=== PATIENT | female | born 2000 | race Two or more races ===

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

== ENCOUNTER 2019-04-19 08:55 | Emergency (ER) | payer SELFPAY ==
[~2019-04-19] VITALS: Ht 154.9 cm; Wt 62.6 kg
[~2019-04-19 08:55] MED LIST changes: +NAPR-683 PO
[2019-04-19] MEDS ORDERED: IV NORMAL SALINE 1000ML BAG 1,000 ML IV ONE (09:30)
[2019-04-19] MEDS ORDERED: ONDANSETRON PF 4 MG/2 ML VIAL. IV ONE (09:30)
[2019-04-19] MEDS ORDERED: FAMOTIDINE 20 MG/2 ML VIAL IVP ONE (09:30)
[2019-04-19 09:50] LABS: BILIRUBIN,URINE NEGATIVE (NEG); CLARITY,URINE CLEAR; COLOR,URINE YELLOW; NITRITE,URINE NEGATIVE (NEG); PROTEIN,URINE NEGATIVE (NEG-TRACE); UROBILINOGEN,URINE 0.2 mg/dL (0.2 mg/dL)
[2019-04-19 09:51] LABS: HEMATOCRIT 39.6 % (36.0-47.0); HEMOGLOBIN 13.9 g/dL (12.0-15.5); MEAN CORPUSCULAR VOLUME 93 fL (79-100); RED BLOOD COUNT 4.26 x10^6/uL (3.50-5.40); WHITE BLOOD COUNT 5.5 x10^3/uL (4.0-11.0)
[2019-04-19 09:52] LABS: BASO % 0 % (0-3); EOS # 0.2 x10^3/uL (0.0-0.7); EOS % 4 % (0-3); LYMPH # 2.4 x10^3/uL (1.0-4.8); LYMPH % 43 % (24-48); MEAN CORPUSCULAR HEMOGLOBIN 33 pg (25-35); MEAN CORPUSCULAR HGB CONC 35 g/dL (31-37); MONO # 0.4 x10^3/uL (0.0-1.1); MONO % 8 % (0-9); NEUT # 2.5 x10^3/uL (1.8-7.7); NEUT % 45 % (31-73); PLATELET COUNT 327 x10^3/uL (140-400); RED CELL DISTRIBUTION WIDTH 12.5 % (11.5-14.5)
[2019-04-19 09:58] LABS: CALCIUM 8.7 mg/dL (8.5-10.1); CREATININE 0.8 mg/dL (0.6-1.0); GFR 92.4; POTASSIUM 3.9 mmol/L (3.5-5.1)
[2019-04-19 10:02] LABS: BACTERIA,URINE FEW /HPF (0-FEW); SQUAMOUS EPITHELIAL CELL,UR MANY /LPF
[2019-04-19 10:04] LABS: ALBUMIN/GLOBULIN RATIO 1.2 (1.0-1.7); MAGNESIUM 1.8 mg/dL (1.8-2.4); TOTAL BILIRUBIN 0.3 mg/dL (0.2-1.0); TOTAL PROTEIN 7.4 g/dL (6.4-8.2)
--- NOTE | 2019-04-19 11:29 | RAD ---
ABDOMEN LTD History: Right upper quadrant pain Comparison: None. Findings: Multiple sonographic images of the abdomen are submitted. There is no abnormality of the visualized pancreas. Gallbladder is present without intraluminal, wall thickening, pericholecystic fluid. Right lobe of the liver measured 15.4 cm longitudinal. Hepatic echogenicity is within normal limits. Common bile duct is within limits at less than 0.2 cm. There is segmental visualization of the inferior vena cava. Right kidney measured 10.1 x 5.1 x 3.7 cm, no hydronephrosis. Impression: 1. No significant abnormality is demonstrated. Electronically signed by: Jonathan Booth MD (04/19/2019 11:26 AM) [id number]
--- NOTE | 2019-04-19 11:46 | PHYS DOC ---
Past Medical History Past Medical History: No Pertinent History Additional Past Medical Histor: Past Surgical History: No Surgical History Alcohol Use: None Drug Use: None Adult General Chief Complaint Chief Complaint: ABDOMINAL PAIN HPI HPI Patient is a 18 year old female who presents to the emergency department with complaints of left upper and epigastric abdominal pain with na usea that increases after eating for the last 4-5 days. Patient denies any vomiting, diarrhea, dysuria, increased urinary frequency, hematuria, irregular vaginal discharge, or vaginal bleeding. She describes the pain as a burning sensation. Patient also denies any fever, cough, shortness of breath, chest pain, palpitations, or sore throat. He currently rates her pain a 7 out of 10 on the pain scale, she denies any alleviating factors, the pain is worse after she eats. The [employer] pressurizer line was used to translate for patient as she is Yoruba speaking only. Review of Systems Review of Systems Constitutional: Denies fever or chills [] Eyes: Denies change in visual acuity, redness, or eye pain [] HENT: Denies nasal congestion or sore throat [] Respiratory: Denies cough or shortness of breath [] Cardiovascular: No additional information not addressed in HPI [] GI: See HPI : Denies dysuria or hematuria [] Musculoskeletal: Denies back pain or joint pain [] Integument: Denies rash or skin lesions [] Neurologic: Denies headache Complete systems were reviewed and found to be within normal limits, except as documented in this note. Current Medications Current Medications Current Medications Medications (Trade) Dose Ordered Sig/Mervat Start Time Stop Time Status Last Admin Dose Admin Famotidine (Pepcid Vial) 20 mg 1X ONCE 04/19/19 09:30 04/19/19 09:31 DC 04/19/19 09:57 20 MG Ondansetron HCl (Zofran) 4 mg 1X ONCE 04/19/19 09:30 04/19/19 09:31 DC 04/19/19 09:57 4 MG Sodium Chloride 1,000 ml @ 1,000 mls/hr 1X ONCE 04/19/19 09:30 04/19/19 10:29 DC 04/19/19 09:57 1,000 MLS/HR Allergies Allergies Allergies Coded Allergies Type Severity Reaction Last Updated Verified No Known Drug Allergies 12/17/16 No Physical Exam Physical Exam Constitutional: Well developed, well nourished, no acute distress, non-toxic appearance. [] HENT: Normocephalic, atraumatic, bilateral external ears normal, oropharynx moist, no oral exudates, nose normal. [] Eyes: PERRLA, EOMI, conjunctiva normal, no discharge. [] Neck: Normal range of motion, no tenderness, supple, no stridor. [] Cardiovascular:Heart rate regular rhythm, no murmur [] Lungs & Thorax: Bilateral breath sounds clear to auscultation [] Abdomen: Bowel sounds normal, soft, no rebound tenderness, no guarding, no masses, no pulsatile masses; RUQ, epigastric and LUQ TTP Skin: Warm, dry, no erythema, no rash. [] Back: No tenderness Extremities: No cyanosis, ROM intact, no edema. [] Neurologic: Alert and oriented X 3, no focal deficits noted. [] Psychologic: Affect normal, judgement normal, mood normal. [] Current Patient Data Vital Signs Vital Signs Date Time Temp Pulse Resp B/P (MAP) Pulse Ox O2 Delivery O2 Flow Rate FiO2 04/19/19 10:50 84 112/66 (81) 100 Room Air 04/19/19 10:20 17 04/19/19 09:01 98.6 98.6 Lab Values Laboratory Tests Test 04/19/19 09:07 04/19/19 09:24 04/19/19 09:34 POC Urine HCG, Qualitative Hcg negative (Negative) Urine Collection Type Void Urine Color Yellow Urine Clarity Clear Urine pH 6.0 Urine Specific [place] 1.010 Urine Protein Negative mg/dL (NEG-TRACE) Urine Glucose (UA) Negative mg/dL (NEG) Urine Ketones (Stick) Negative mg/dL (NEG) Urine Blood Negative (NEG) Urine Nitrite Negative (NEG) Urine Bilirubin Negative (NEG) Urine Urobilinogen Dipstick 0.2 mg/dL (0.2 mg/dL) Urine Leukocyte Esterase Small (NEG) Urine RBC 1-2 /HPF (0-2) Urine WBC 5-10 /HPF (0-4) Urine Squamous Epithelial Cells Many /LPF Urine Bacteria Few /HPF (0-FEW) White Blood Count 5.5 x10^3/uL (4.0-11.0) Red Blood Count 4.26 x10^6/uL (3.50-5.40) Hemoglobin 13.9 g/dL (12.0-15.5) Hematocrit 39.6 % (36.0-47.0) Mean Corpuscular Volume 93 fL (79-100) Mean Corpuscular Hemoglobin 33 pg (25-35) Mean Corpuscular Hemoglobin Concent 35 g/dL (31-37) Red Cell Distribution Width 12.5 % (11.5-14.5) Platelet Count 327 x10^3/uL (140-400) Neutrophils (%) (Auto) 45 % (31-73) Lymphocytes (%) (Auto) 43 % (24-48) Monocytes (%) (Auto) 8 % (0-9) Eosinophils (%) (Auto) 4 % (0-3) H Basophils (%) (Auto) 0 % (0-3) Neutrophils # (Auto) 2.5 x10^3/uL (1.8-7.7) Lymphocytes # (Auto) 2.4 x10^3/uL (1.0-4.8) Monocytes # (Auto) 0.4 x10^3/uL (0.0-1.1) Eosinophils # (Auto) 0.2 x10^3/uL (0.0-0.7) Basophils # (Auto) 0.0 x10^3/uL (0.0-0.2) Sodium Level 140 mmol/L (136-145) Potassium Level 3.9 mmol/L (3.5-5.1) Chloride Level 103 mmol/L (98-107) Carbon Dioxide Level 29 mmol/L (21-32) Anion Gap 8 (6-14) Blood Urea Nitrogen 12 mg/dL (7-20) Creatinine 0.8 mg/dL (0.6-1.0) Estimated GFR (Cockcroft-Gault) 92.4 BUN/Creatinine Ratio 15 (6-20) Glucose Level 93 mg/dL (70-99) Calcium Level 8.7 mg/dL (8.5-10.1) Magnesium Level 1.8 mg/dL (1.8-2.4) Total Bilirubin 0.3 mg/dL (0.2-1.0) Aspartate Amino Transferase (AST) 17 U/L (15-37) Alanine Aminotransferase (ALT) 13 U/L (14-59) L Alkaline Phosphatase 87 U/L (46-116) Total Protein 7.4 g/dL (6.4-8.2) Albumin 4.0 g/dL (3.4-5.0) Albumin/Globulin Ratio 1.2 (1.0-1.7) Lipase 238 U/L (73-393) Laboratory Tests 04/19/19 09:34 Laboratory Tests 04/19/19 09:34 EKG EKG [] Radiology/Procedures Radiology/Procedures PROCEDURE: ABDOMEN LTD ABDOMEN LTD History: Right upper quadrant pain Comparison: None. Findings: Multiple sonographic images of the abdomen are submitted. There is no abnormality of the visualized pancreas. Gallbladder is present without intraluminal, wall thickening, pericholecystic fluid. Right lobe of the liver measured 15.4 cm longitudinal. Hepatic echogenicity is within normal limits. Common bile duct is within limits at less than 0.2 cm. There is segmental visualization of the inferior vena cava. Right kidney measured 10.1 x 5.1 x 3.7 cm, no hydronephrosis. Impression: 1. No significant abnormality is demonstrated.[] Course & Med Decision Making Course & Med Decision Making Pertinent Labs and Imaging studies reviewed. (See chart for details) dx: GERD Patient is a 18-year-old female who presented to the emergency room with complaints of upper abdominal pain and nausea for the last 4-5 days increases after eating. In the emergency department she was given a liter normal saline, and 20 of Pepcid IV. Patient reported feeling better after medications. Vital signs were stable throughout her visit. Her CBC, CMP, and UA were all unremarkable, ultrasound of the right upper quadrant revealed a normal gallbladder. Prescription written for famotidine. Patient instructed to follow diet instructions provided and follow-up with her primary care doctor next week. Patient verbalized an understanding of home care, medications, follow-up, and return to ED instructions and was in agreement with the plan of care. [] Dragon Disclaimer Dragon Disclaimer This electronic medical record was generated, in whole or in part, using a voice recognition dictation system. Departure Departure Impression: Primary Impression: GERD (gastroesophageal reflux disease) Disposition: HOME, SELF-CARE Condition: STABLE Referrals: NO PCP (PCP) Patient Instructions: Diet for Gastroesophageal Reflux Disease, Adult, [id number], Gastroesophageal Reflux Disease, Adult, [id number] Additional Instructions: Fill the prescription and use it as directed. Follow the diet instructions provided. Follow up with your primary care doctor next week, return to the ER if symptoms worsen. Scripts Famotidine (FAMOTIDINE) 20 Mg Tablet 20 MG PO BID for 30 Days, #60 TAB 0 Refills Prov: MARIBEL GOMEZ APRN 04/19/19 Problem Qualifiers Primary Impression: GERD (gastroesophageal reflux disease) Esophagitis presence: esophagitis presence not specified Qualified Codes: K21.9 - Gastro-esophageal reflux disease without esophagitis MARIBEL GOMEZ WASHING MACHINE MECHANIC Apr 19, 2019 11:46
[2019-04-19] MEDS ORDERED: FAMO20TA5 PO (11:57)
[2019-04-19 12:09] VITALS: BP 115/63
== END 2019-04-19 12:13 | disposition home or self-care (01) ==
LOC: ER 08:55
DX: K21.9 Gastro-esophageal reflux disease without esophagitis (principal)
CPT/HCPCS: 36415; 76705; 80053; 81001; 81025; 83690; 83735; 85025; 87086; 96374; 96375; 99285; J2405; J3490; J7030

== ENCOUNTER 2020-02-08 06:49 | Emergency (ER) | payer SELFPAY ==
[~2020-02-08] VITALS: Ht 157.5 cm; Wt 63.6 kg
[~2020-02-08 06:49] MED LIST changes: +FAMO20TA5 PO
[2020-02-08 07:45] VITALS: BP 123/69
--- NOTE | 2020-02-08 08:25 | PHYS DOC ---
Past Medical History Past Medical History: No Pertinent History Additional Past Medical Histor: Past Surgical History: No Surgical History Smoking Status: Never Smoker Alcohol Use: Occasionally Drug Use: None General Adult EDM: Chief Complaint: VAGINAL BLEEDING HPI: HPI: 19-year-old (Ft, , no complications) F who denies any significant past medical history presents the ED with complaints of heavy vaginal bleeding, lower pelvic abdominal pain, using a pad every hour with multiple blood clots, for the past few days. Patient states her menstrual periods usually on the every month, started this month on the or . Also states " I feel s wollen in my private parts and there is a white ball that exploded into pus with brown color and odor a few days ago." 1 male sexual partner with no protection. He does not have any rash, urethral discharge or UTI symptoms. Patient with no prior Pap. Is not taking any medications. No known drug allergies. Denies any tobacco or cocaine use. *[employer] services were used during patient's encounter, Hungarian-speaking. Review of Systems: Review of Systems: Constitutional: Denies fever or chills. [] Eyes: Denies change in visual acuity. [] HENT: Denies nasal congestion or sore throat. [] Respiratory: Denies cough or shortness of breath. [] Cardiovascular: Denies chest pain or syncope GI: Denies nausea, vomiting, bloody stools or diarrhea. [] : Denies dysuria, hematuria Musculoskeletal: Denies back pain or joint pain. [] Integument: Denies rash. [] Neurologic: Denies headache, focal weakness or sensory changes. [] Endocrine: Denies polyuria or polydipsia. [] Lymphatic: Denies swollen glands. [] Psychiatric: Denies depression or anxiety. [] Heart Score: Risk Factors: Risk Factors: DM, Current or recent (<one month) smoker, HTN, HLP, family history of CAD, obesity. Risk Scores: Score 0 - 3: 2.5% MACE over next 6 weeks - Discharge Home Score 4 - 6: 20.3% MACE over next 6 weeks - Admit for Clinical Observation Score 7 - 10: 72.7% MACE over next 6 weeks - Early Invasive Strategies Allergies: Allergies: Allergies Coded Allergies Type Severity Reaction Last Updated Verified No Known Drug Allergies 7/27/17 No Physical Exam: PE: Constitutional: Well developed, well nourished, no acute distress, non-toxic appearance. [] HENT: Normocephalic, atraumatic, Eyes: EOMI, conjunctiva normal, Neck: Normal range of motion, supple, Cardiovascular:Heart rate regular rhythm, no murmur [] Lungs & Thorax: Bilateral breath sounds clear to auscultation [] Abdomen: Bowel sounds normal, soft, no tenderness, no masses, no pulsatile masses. [] Skin: Warm, dry, no erythema, no rash. [] Back: No tenderness, no CVA tenderness. [] Extremities: No tenderness, no cyanosis, no clubbing, ROM intact, no edema. [] Neurologic: Alert and oriented X 3, normal motor function, normal sensory function, no focal deficits noted. [] Psychologic: Affect normal, judgement normal, mood normal. [] PELVIC: Chaperoned by RN, normal external genitalia, no evidence of Bartholin's cyst or abscess, no rash, moderate nonbrisk vaginal bleeding and vaginal vault, cervical os closed and multiparous with no erythema, no CMT or adnexal tenderness, no abnormal discharge Current Patient Data: Labs: Laboratory Tests Test 02/08/20 07:59 POC Urine HCG, Qualitative Hcg negative (Negative) Vital Signs: Vital Signs Date Time Temp Pulse Resp B/P (MAP) Pulse Ox O2 Delivery O2 Flow Rate FiO2 02/08/20 07:45 98.5 90 14 123/69 (87) 98 Room Air 98.5 EKG: EKG: [] Radiology/Procedures: Radiology/Procedures: IMAGING REPORT Signed PATIENT: RIGOBERTO FRANCO AACCOUNT: [id number] : 2000 LOCATION: ER AGE: 19 SEX: F EXAM STATUS: REG ER ORD. PHYSICIAN: GUADALUPE NORMAN DO REASON: pelvic pain, vb PROCEDURE: PELVIS W/TV Pelvic ultrasound INDICATION: Pelvic pain and vaginal bleeding for 4 days. TECHNIQUE: Grayscale, color and spectral Doppler imaging of the pelvis was performed transabdominally and endovaginally. FINDINGS: The uterus measures 8.1 x 5.2 x 3.5 cm. The endometrium measures 4.8 mm. The right ovary measures 3.7 x 3.6 x 2.6 cm and demonstrates normal blood flow. It contains a dominant follicle measuring 2.6 x 2.1 x 2.5 cm and which contains a thin internal septation. The left ovary measures 2.4 x 2.4 x 2.2 cm and demonstrates normal blood flow. No pelvic free fluid. The transabdominal images show no additional findings. The urinary bladder is unremarkable. IMPRESSION: Dominant right ovarian follicle measuring 2.6 cm. Otherwise unremarkable pelvic ultrasound by transabdominal and endovaginal imaging. Electronically signed by: Jose Mccullough MD (02/08/2020 9:20 AM) [id number] DICTATED and SIGNED BY: JOSE MCCULLOUGH MD DATE: 02/08/20919 Course & Med Decision Making: Course & Med Decision Making Pertinent Labs and Imaging studies reviewed. (See chart for details) Concern for metomenorrhagia in a young female, negative test. Chlamydia and gonorrhea are sent, patient will be treated empiracally in ed. She was advised to have her partner treated and abstain from sex for 7 days. U/A with blood test with physical exam, no infection. Vaginal ultrasound shows right dominant follicle of 2.6 cm. Low suspicion for torsion, patient very comfortable in ED, no significant pain with physical exam. Labs with no anemia/ Will refer to primary care physician or local health department for born STI testing. Strict ed return precautions for hemorrhage, syncope, weakness or exertional dyspnea. Encouraged urgent outpatient follow-up with PMD and obgyn. Life-threatening processes were considered but are low suspicion at this time, given history and physical exam. Pt was educated on all prescription medications and adverse effects. All patient's questions were answered and pt was stable at time of discharge. Differential includes aortic dissection, aortic aneurysm, acute coronary syndrome, surgical abdomen (appendicitis, cholecystitis, ischemic bowel, strangulated hernia, etc), bowel obstruction or volvulus, bladder outlet obstruction, gastrointestinal bleeding, inflammatory bowel disease, peptic ulcer disease, sepsis, diverticular disease, ureterolithiasis, nephrolithiasis, ovarian or testicular torsion, ectopic , vaginal hemorrhage of infection I spoken with the patient and her caregivers. I explained the patient's condition, diagnoses and treatment plan based on the information available to me at this time. I have answered the patient and her caregiver's questions and addressed any concerns. The patient and her caregivers have a good understanding of patient's diagnosis, condition and treatment plan as can be expected at this point. Vital signs have been stable. Patient's condition is stable and appropriate for discharge from the emergency department. Patient will pursue further outpatient evaluation with primary care physician or other designated or consulting physician as outlined in the discharge instructions. The patient and/or caregivers are agreeable to this plan of care and follow-up instructions have been explained in detail. The patient and/or caregivers have received these instructions in written form and have expressed an understanding of the discharge instructions. The patient and/or caregivers are aware that any significant change of condition or worsening of symptoms should prompt immediate return to this or the closest emergency department or call to 911. [employer] Disclaimer: Miguel Ángel Disclaimer: This electronic medical record was generated, in whole or in part, using a voice recognition dictation system. Departure Departure Impression: Primary Impression: Menorrhagia with irregular cycle Disposition: HOME, SELF-CARE Condition: STABLE Referrals: NO PCP (PCP) Patient Instructions: Menorrhagia Additional Instructions: Damian Segovia MD Obstetrics and Gynecology in 1 week [facility] [employer] TECHNICIAN, [employer] Address: [address] [place] [id number] Justicifation of Admission Dx: Justifications for Admission: Justification of Admission Dx: N/A GUADALUPE NORMAN DO Feb 08, 2020 08:25
[2020-02-08 08:27] LABS: BILIRUBIN,URINE NEGATIVE (NEG); CLARITY,URINE CLEAR; COLOR,URINE YELLOW; NITRITE,URINE NEGATIVE (NEG); PH,URINE 5.5 (<5.0-8.0); PROTEIN,URINE NEGATIVE (NEG-TRACE); UROBILINOGEN,URINE 0.2 mg/dL (0.2 mg/dL)
[2020-02-08] MEDS ORDERED: cefTRIAXone IM 250 MG VIAL IM ONE (08:30)
[2020-02-08] MEDS ORDERED: AZITHROMYCIN 250 MG TABLET. PO ONE (08:30)
[2020-02-08 08:32] LABS: SQUAMOUS EPITHELIAL CELL,UR MOD /LPF
[2020-02-08 08:33] LABS: RBC,URINE TNTC /HPF (0-2)
[2020-02-08 08:34] LABS: BACTERIA,URINE FEW /HPF (0-FEW)
--- NOTE | 2020-02-08 09:23 | RAD ---
Pelvic ultrasound INDICATION: Pelvic pain and vaginal bleeding for 4 days. TECHNIQUE: Grayscale, color and spectral Doppler imaging of the pelvis was performed transabdominally and endovaginally. FINDINGS: The uterus measures 8.1 x 5.2 x 3.5 cm. The endometrium measures 4.8 mm. The right ovary measures 3.7 x 3.6 x 2.6 cm and demonstrates normal blood flow. It contains a dominant follicle measuring 2.6 x 2.1 x 2.5 cm and which contains a thin internal septation. The left ovary measures 2.4 x 2.4 x 2.2 cm and demonstrates normal blood flow. No pelvic free fluid. The transabdominal images show no additional findings. The urinary bladder is unremarkable. IMPRESSION: Dominant right ovarian follicle measuring 2.6 cm. Otherwise unremarkable pelvic ultrasound by transabdominal and endovaginal imaging. Electronically signed by: Juan Mccullough MD (02/08/2020 9:20 AM) [id number]
[2020-02-08 10:31] LABS: BASO % 0 % (0-3); EOS # 0.2 x10^3/uL (0.0-0.7); EOS % 2 % (0-3); HEMATOCRIT 41.7 % (36.0-47.0); HEMOGLOBIN 14.7 g/dL (12.0-15.5); LYMPH # 2.9 x10^3/uL (1.0-4.8); LYMPH % 25 % (24-48); MEAN CORPUSCULAR HEMOGLOBIN 33 pg (25-35); MEAN CORPUSCULAR HGB CONC 35 g/dL (31-37); MEAN CORPUSCULAR VOLUME 92 fL (79-100); MONO # 0.6 x10^3/uL (0.0-1.1); MONO % 5 % (0-9); NEUT # 7.9 x10^3/uL (1.8-7.7); NEUT % 68 % (31-73); PLATELET COUNT 305 x10^3/uL (140-400); RED BLOOD COUNT 4.52 x10^6/uL (3.50-5.40); RED CELL DISTRIBUTION WIDTH 12.3 % (11.5-14.5); WHITE BLOOD COUNT 11.6 x10^3/uL (4.0-11.0)
[2020-02-08 10:42] LABS: CREATININE 0.7 mg/dL (0.6-1.0); GFR 106.7; POTASSIUM 3.6 mmol/L (3.5-5.1)
[2020-02-10 17:09] LABS: GC PROBE Negative (Negative)
== END 2020-02-08 11:35 | disposition home or self-care (01) ==
LOC: ER 06:49
DX: N92.1 Excessive and frequent menstruation with irregular cycle (principal)
CPT/HCPCS: 36415; 76830; 76856; 80048; 81001; 81025; 85025; 87491; 87591; 96372; 99284; J0696

== ENCOUNTER 2020-03-21 14:50 | Emergency (ER) | payer SELFPAY ==
[~2020-03-21] VITALS: Ht 154.9 cm; Wt 63.6 kg
--- NOTE | 2020-03-21 15:34 | PHYS DOC ---
Past Medical History Past Medical History: No Pertinent History Additional Past Medical Histor: Past Surgical History: No Surgical History Smoking Status: Never Smoker Alcohol Use: Occasionally Drug Use: None General Adult EDM: Chief Complaint: HEADACHE HPI: HPI: Patient is a 19 year old female who presents with a chief complaint of headache. Patient has had a headache for about a week ago more severe over the last 24 hours. Patient describes a global throbbing headache that is 8-9 out of 10. Patient also had a bit of left-sided lateral neck discomfort today. Patient denies any fever, chills, vomiting or diarrhea. Patient's had blurry vision for some time which got new glasses but she has had persistent blurry vision worse in the right eye. Patient has some nausea as well. Review of Systems: Review of Systems: Constitutional: Denies fever or chills. [] Eyes: Complains of some blurry vision, more present in the right side] HENT: Denies nasal congestion or sore throat. [] Respiratory: Denies cough or shortness of breath. [] Cardiovascular: Denies chest pain or edema. [] GI: Denies abdominal pain, vomiting, diarrhea but has had some nausea : Denies dysuria. [] Musculoskeletal: Denies back pain or joint pain. [] Integument: Denies rash. [] Neurologic: Complains of headache but no focal weakness or sensory changes. [] Endocrine: Denies polyuria or polydipsia. [] Lymphatic: Denies swollen glands. [] Psychiatric: Denies depression or anxiety. [] Heart Score: Risk Factors: Risk Factors: DM, Current or recent (<one month) smoker, HTN, HLP, family history of CAD, obesity. Risk Scores: Score 0 - 3: 2.5% MACE over next 6 weeks - Discharge Home Score 4 - 6: 20.3% MACE over next 6 weeks - Admit for Clinical Observation Score 7 - 10: 72.7% MACE over next 6 weeks - Early Invasive Strategies Current Medications: Current Medications Prochlorperazine Edisylate (Compazine) 10 mg 1X ONCE IV Last administered on 03/21/20at 16:15; Start 03/21/20 at 15:45; Stop 03/21/20 at 15:46; Status DC Diphenhydramine HCl (Benadryl) 25 mg 1X ONCE IVP Last administered on 03/21/20at 16:15; Start 03/21/20 at 15:45; Stop 03/21/20 at 15:46; Status DC Active Scripts Active Famotidine 20 Mg Tablet 20 Mg PO BID 30 Days Naprosyn (Naproxen) 500 Mg Tablet 1 Tab PO BID Reglan (Metoclopramide Hcl) 10 Mg Tablet 1 Tab PO TID PRN Metrogel-Vaginal (Metronidazole) 70 Gm Gel.w.appl 1 Appful VG QHS 7 Days Cephalexin 500 Mg Tablet 1 Tab PO BID Allergies: Allergies: Allergies Coded Allergies Type Severity Reaction Last Updated Verified No Known Drug Allergies 12/17/16 No Physical Exam: PE: Constitutional: Well developed, well nourished, no acute distress, non-toxic appearance. [] HENT: Normocephalic, atraumatic, bilateral external ears normal, mucous membranes are moist, nose normal. [] Eyes: PERRLA, EOMI, conjunctiva normal, no discharge. [] Neck: Normal range of motion, no tenderness, supple, no stridor. [], Full range of motion, no meningeal signs Cardiovascular:Heart rate regular rhythm, peripheral pulses are intact cap refill is brisk Lungs & Thorax: Bilateral breath sounds clear, no respiratory distress Abdomen: soft, no tenderness, no masses, no pulsatile masses. [] Skin: Warm, dry, no erythema, no rash. [] Back: No tenderness, no CVA tenderness. [] Extremities: No tenderness, no cyanosis, no clubbing, ROM intact, no edema. [] Neurologic: Alert and oriented X 3, normal motor function, normal sensory function, no focal deficits noted. [] Psychologic: Affect normal, judgement normal, mood normal. [] Current Patient Data: Labs: Laboratory Tests Test 03/21/20 15:30 03/21/20 15:39 03/21/20 16:05 Urine Collection Type Void Urine Color Yellow Urine Clarity Clear Urine pH 6.5 Urine Specific Lampe <=1.005 Urine Protein Negative mg/dL Urine Glucose (UA) Negative mg/dL Urine Ketones (Stick) Negative mg/dL Urine Blood Negative Urine Nitrite Negative Urine Bilirubin Negative Urine Urobilinogen Dipstick 0.2 mg/dL Urine Leukocyte Esterase Small Urine RBC 0 /HPF Urine WBC 1-4 /HPF Urine Squamous Epithelial Cells Mod /LPF Urine Bacteria 0 /HPF Bedside Urine HCG, Qualitative Hcg negative White Blood Count 6.7 x10^3/uL Red Blood Count 4.37 x10^6/uL Hemoglobin 14.0 g/dL Hematocrit 40.1 % Mean Corpuscular Volume 92 fL Mean Corpuscular Hemoglobin 32 pg Mean Corpuscular Hemoglobin Concent 35 g/dL Red Cell Distribution Width 11.9 % Platelet Count 273 x10^3/uL Neutrophils (%) (Auto) 42 % Lymphocytes (%) (Auto) 47 % Monocytes (%) (Auto) 7 % Eosinophils (%) (Auto) 4 % Basophils (%) (Auto) 1 % Neutrophils # (Auto) 2.8 x10^3/uL Lymphocytes # (Auto) 3.2 x10^3/uL Monocytes # (Auto) 0.5 x10^3/uL Eosinophils # (Auto) 0.2 x10^3/uL Basophils # (Auto) 0.0 x10^3/uL Maternal Serum HCG Beta Subunit < 1 mIU/mL Sodium Level 140 mmol/L Potassium Level 3.9 mmol/L Chloride Level 104 mmol/L Carbon Dioxide Level 27 mmol/L Anion Gap 9 Blood Urea Nitrogen 16 mg/dL Creatinine 0.6 mg/dL Estimated GFR (Cockcroft-Gault) 127.5 Glucose Level 81 mg/dL Calcium Level 9.3 mg/dL C-Reactive Protein, Quantitative < 0.5 mg/L Current Medications Medications (Trade) Dose Ordered Sig/Mervat Route PRN Reason Start Time Stop Time Status Last Admin Dose Admin Prochlorperazine Edisylate (Compazine) 10 mg 1X ONCE IV 03/21/20 15:45 03/21/20 15:46 DC 03/21/20 16:15 Diphenhydramine HCl (Benadryl) 25 mg 1X ONCE IVP 03/21/20 15:45 03/21/20 15:46 DC 03/21/20 16:15 Vital Signs: Vital Signs Date Time Temp Pulse Resp B/P (MAP) Pulse Ox O2 Delivery O2 Flow Rate FiO2 03/21/20 15:10 98.2 75 12 113/57 (75) 98 Room Air 98.2 EKG: EKG: [] Radiology/Procedures: Radiology/Procedures: [][facility] [address] [place] [address] IMAGING REPORT Signed PATIENT: RIGOBERTO FRANCO AACCOUNT: [id number] : 2000 LOCATION: ER AGE: 19 SEX: F EXAM STATUS: REG ER ORD. PHYSICIAN: KYLE REYES MD REASON: HEADACHE PROCEDURE: CT HEAD WO CONTRAST Exam: CT head INDICATION: Headache TECHNIQUE: Sequential axial images through the head were obtained without the administration of IV contrast. Comparisons: None FINDINGS: No focal parenchymal lesion or hemorrhage is identified. There is no midline shift or sulcal effacement. No acute vascular territory infarction is identified. Loya-white distinction is preserved. The ventricular system is within normal limits without compression hydrocephalus. The basal cisterns are well maintained. The visualized portions of the paranasal sinuses and mastoid air cells are well-pneumatized. No acute fractures. IMPRESSION: No acute intracranial abnormality. Exposure: One or more of the following in the visualized dose reduction techniques were utilized for this examination: 1. Automated exposure control 2. Adjustment of the MA and/or KV according to patient size Use of iterative of reconstructive technique Electronically signed by: Francie Ohara MD (03/21/2020 4:08 PM) [facility] DICTATED and SIGNED BY: FRANCIE OHARA MD DATE: 03/21/201607 Course & Med Decision Making: Course & Med Decision Making Pertinent Labs and Imaging studies reviewed. (See chart for details) 19-year-old female presents with a headache and some blurry vision. Symptoms been going off and on for a week and worse over the last day. Patient denies any fever. Patient has no meningeal signs. After medication to the ER her headache is gone and her vision is back to normal. Doubt subarachnoid hemorrhage doubt meningitis. Patient stable for discharge outpatient follow-up return precautions given. MIPS measure: Head CT done for atraumatic headache due to change in nature of headache. When patient was already discharged the nurse noted the patient was having akathisiaS that she was not having a few minutes ago. Ativan will be ordered. Patient will need to have Compazine listed as an allergy. Dragon Disclaimer: Miguel Ángel Disclaimer: This electronic medical record was generated, in whole or in part, using a voice recognition dictation system. Departure Departure Impression: Primary Impression: Headache Disposition: 01 DC HOME SELF CARE/HOMELESS Condition: STABLE Referrals: NO PCP (PCP) NOLBERTO YODER MD 2-3 days Patient Instructions: General Headache Without Cause Additional Instructions: EMERGENCY DEPARTMENT GENERAL DISCHARGE INSTRUCTIONS THANK YOU for coming to [facility] Emergency Department (ED) today and trusting us with your care. We trust that you had a positive experience in our Emergency Department. If you wish to speak to the department Management you can contact the emergency department rn at . YOUR FOLLOW UP INSTRUCTIONS ARE FOLLOWS: Do you have a private doctor? If you do not have a private doctor, please ask for a resource list of physicians or clinics that may be able to assist you with follow up care. The Emergency Physician has interpreted your x-rays. The X-ray specialist will also review them. If there is a change in the findings you will be notified in 48 hours when at all possible. A lab test or lab culture may have been done, your results will be reviewed and you will be notified if you need a change in treatment. ADDITIONAL INSTRUCTIONS AND INFORMATION Your care today has been supervised by a physician who is specially trained in emergency care. Many problems require more than one evaluation for a complete diagnosis and treatment. We recommend that you schedule your follow up appointment as recommended to ensure complete treatment of your illness or injury. If you are unable to obtain follow up care and continue to have a problem, or if your condition worsens we recommend that you return to the ED. We are not able to safely determine your condition over the phone nor are we able to give sound medical advice over the phone. For these safety reasons, if you call for medical advice we will ask you to come to the ED for further evaluation If you have any questions regarding these discharge instructions please call the ED at . SAFETY INFORMATION In the interest of safety, wellness, and injury prevention; we encourage you to wear your seatbelt, if you smoke; quit smoking, and we encourage your family to use protective helmet for bicycling and other sporting events that present an increased risk for head injury. IF YOUR SYMPTOMS WORSEN OR NEW SYMPTOMS DEVELOP, OR YOU HAVE CONCERNS ABOUT YOUR CONDITION; OR IF YOUR CONDITION WORSENS WHILE YOU ARE WAITING FOR YOUR FOLLOW UP APPOINTMENT; EITHER CONTACT YOUR PRIMARY CARE DOCTOR, THE PHYSICIAN WHOSE NAME AND NUMBER YOU WERE GIVEN, OR RETURN TO THE ED IMMEDIATELY. KYLE REYES MD Mar 21, 2020 15:34
[2020-03-21] MEDS ORDERED: PROCHLORPERAZINE 10 MG/2 ML VIAL. IV ONE (15:45)
[2020-03-21] MEDS ORDERED: diphenhydrAMINE 50 MG/ML VIAL IVP ONE (15:45)
[2020-03-21 15:46] LABS: BILIRUBIN,URINE NEGATIVE (NEG); CLARITY,URINE CLEAR; COLOR,URINE YELLOW; NITRITE,URINE NEGATIVE (NEG); PH,URINE 6.5 (<5.0-8.0); PROTEIN,URINE NEGATIVE (NEG-TRACE); UROBILINOGEN,URINE 0.2 mg/dL (0.2 mg/dL)
[2020-03-21 16:06] LABS: BACTERIA,URINE 0 /HPF (0-FEW); RBC,URINE 0 /HPF (0-2)
--- NOTE | 2020-03-21 16:11 | RAD ---
Exam: CT head INDICATION: Headache TECHNIQUE: Sequential axial images through the head were obtained without the administration of IV contrast. Comparisons: None FINDINGS: No focal parenchymal lesion or hemorrhage is identified. There is no midline shift or sulcal effacement. No acute vascular territory infarction is identified. Loya-white distinction is preserved. The ventricular system is within normal limits without compression hydrocephalus. The basal cisterns are well maintained. The visualized portions of the paranasal sinuses and mastoid air cells are well-pneumatized. No acute fractures. IMPRESSION: No acute intracranial abnormality. Exposure: One or more of the following in the visualized dose reduction techniques were utilized for this examination: 1. Automated exposure control 2. Adjustment of the MA and/or KV according to patient size Use of iterative of reconstructive technique Electronically signed by: Francie Levine MD (03/21/2020 4:08 PM) [facility]
[2020-03-21 16:18] LABS: BASO % 1 % (0-3); EOS # 0.2 x10^3/uL (0.0-0.7); EOS % 4 % (0-3); HEMATOCRIT 40.1 % (36.0-47.0); LYMPH # 3.2 x10^3/uL (1.0-4.8); LYMPH % 47 % (24-48); MEAN CORPUSCULAR HEMOGLOBIN 32 pg (25-35); MEAN CORPUSCULAR HGB CONC 35 g/dL (31-37); MEAN CORPUSCULAR VOLUME 92 fL (79-100); MONO # 0.5 x10^3/uL (0.0-1.1); MONO % 7 % (0-9); NEUT # 2.8 x10^3/uL (1.8-7.7); NEUT % 42 % (31-73); PLATELET COUNT 273 x10^3/uL (140-400); RED BLOOD COUNT 4.37 x10^6/uL (3.50-5.40); RED CELL DISTRIBUTION WIDTH 11.9 % (11.5-14.5); WHITE BLOOD COUNT 6.7 x10^3/uL (4.0-11.0)
[2020-03-21 16:31] LABS: ANION GAP 9 (6-14); BLOOD UREA NITROGEN 16 mg/dL (7-20); CALCIUM 9.3 mg/dL (8.5-10.1); CARBON DIOXIDE 27 mmol/L (21-32); CHLORIDE 104 mmol/L (98-107); CREATININE 0.6 mg/dL (0.6-1.0); GFR 127.5; GLUCOSE 81 mg/dL (70-99); POTASSIUM 3.9 mmol/L (3.5-5.1); SODIUM 140 mmol/L (136-145)
[2020-03-21 16:33] LABS: C-REACTIVE PROTEIN < 0.5 mg/L (0-3.3)
[2020-03-21 16:44] VITALS: BP 125/80
[2020-03-21] MEDS ORDERED: PROC10TA57 PO (17:07)
== END 2020-03-21 17:40 | disposition home or self-care (01) ==
LOC: ER 14:50
DX: R51.9 Headache, unspecified (principal); M54.2 Cervicalgia; H53.8 Other visual disturbances; R11.0 Nausea
CPT/HCPCS: 36415; 70450; 80048; 81001; 81025; 84702; 85025; 86140; 87086; 96374; 96375; 99284; J0780; J1200; J2060